=== PATIENT | male | born 2000 ===

== ENCOUNTER 2022-01-16 19:11 | Emergency (ER) | payer OTHER, SELFPAY ==
[2022-01-16 19:18] VITALS: BP 142/82; PULSE 87; RESP 16; TEMP 36.8; O2SAT 99; BMI 23.9
--- NOTE | 2022-01-16 19:21 | DI.RAD.S_ITS ---
PROCEDURE: XR HAND RT MIN 3V INDICATIONS: palm pain after jumping off bridge TECHNIQUE: 3 views of the hand(s) acquired. COMPARISON: None. FINDINGS: Bones: No fractures or dislocations. Carpal bones are normally aligned. No suspicious bony lesions. Benign-appearing sclerosis involving 5th proximal phalangeal shaft . Soft tissues: No suspicious soft tissue calcifications. IMPRESSION: No acute right hand fracture or dislocation. Benign-appearing sclerotic area involving 5th proximal phalangeal shaft which may represent benign process such as melorheostosis. Clinical correlation and radiographic follow-up is recommended. Dictated by: Eugene Fernádnez M.D. on 01/16/2022 at 19:56 Approved by: Eugene Fernández M.D. on 01/16/2022 at 19:57
--- NOTE | 2022-01-16 19:21 | DI.CT.S_ITS ---
PROCEDURE: CT HEAD/BRAIN WO CON INDICATIONS: jumped off bridge with right eye contusion TECHNIQUE: Noncontrast 4.5 mm thick angled axial sections acquired from the foramen magnum to the vertex, with coronal and sagittal reformats. For radiation dose reduction, the following was used: automated exposure control, adjustment of mA and/or kV according to patient size. COMPARISON: None. FINDINGS: Image quality: Excellent. CSF spaces: Basal cisterns are patent. No extra-axial fluid collections. Ventricles are normal in size and shape. Brain: No midline shift. No intracranial masses or hemorrhage. Dougherty-white matter interface is normal. Skull and face: There is very mild right frontal soft tissue swelling. Calvarium and visualized facial bones are intact, without suspicious lesions. Sinuses: Visualized sinuses and mastoids are clear. IMPRESSION: 1. No CT evidence of acute intracranial abnormalities. 2. Mild right frontal scalp soft tissue swelling. No acute skull fracture. Orbital gao are intact. Dictated by: Eugene Fernández M.D. on 01/16/2022 at 19:54 Approved by: Eugene Fernández M.D. on 01/16/2022 at 19:55
--- NOTE | 2022-01-16 19:21 | ED.GENADULT ---
HPI - General Adult General Chief complaint: Psychiatric Symptoms Stated complaint: SI, [place] Time Seen by Provider: 01/16/22 19:12 Source: patient and EMS Mode of arrival: EMS Limitations: no limitations History of Present Illness HPI narrative: Patient is a 21-year-old male who arrived in a cervical collar by BLS for evaluation injuries that he sustained from jumping off of a bridge. EMS reports that they were called because the patient had jumped off the bridge. Patient reports that he is injuries to his right hand otherwise no other injuries. He did swim to sure. His initial report that the bridge height was 200 ft however further evaluation this shows that it was more like 75 ft. There was no loss of consciousness. Patient states that he did this because he was trying to get attention from a girl. He states that he was not trying to kill himself. He admits that this was not the right actions in order to get the girl to notice him. He stated that he was not currently suicidal. Not homicidal. After further discussions with the patient by nursing staff it appears that he recently was admitted to [facility] for psychotic symptoms with SI. He mentioned to the nurse that he is not taking any of the medications that he was prescribed because he states that he feels like he does not need any of the medications. His story does change based on who is asking him questions. Related Data Allergies Allergy/AdvReac Type Severity Reaction Status Date / Time NSAIDS (Non-Steroidal Allergy Hives Verified 01/17/22 01:03 Anti-Inflamma Review of Systems Constitutional Constitutional: Reports system reviewed and no additional complaints, except as documented and Denies headache(s) Eyes Comments: No vision changes ENT Ears, Nose, Mouth, and Throat: Denies headache(s) Comments: No sore throat Cardiovascular Comments: Denies chest pain Respiratory Comments: Denies shortness of breath Gastrointestinal Comments: Denies abdominal pain or nausea vomiting Musculoskeletal Comments: Does endorse right hand pain Integumentary/Breasts Comments: No skin rashes Neurologic Neurologic: Denies headache(s) Psychiatric Comments: Denies suicidal or homicidal ideation Hematologic/Lymphatic Comments: Not on anticoagulation Allergic/Immunologic Allergic/Immunologic: Reports system reviewed and no additional complaints, except as documented Patient History Medical History Patient denies medical problems Social History Smoking Status: Current some day smoker Exam Initial Vital Signs Initial Vital Signs: Vital Signs Temperature 98.3 F 01/16/22 19:18 Pulse Rate 87 01/16/22 19:18 Respiratory Rate 16 01/16/22 19:18 Blood Pressure 142/82 H 01/16/22 19:18 Pulse Oximetry 99 01/16/22 19:18 Oxygen Delivery Method 01/16/22 19:18 Const General: cooperative, comfortable and No ill appearing HENMT Head: normal to inspection and normocephalic Eyes Pupils: PERRL Other: Contusion above right eye, bruising above the right eye Chest Chest: No crepitus and No tenderness Resp Effort & Inspection: normal respiratory effort Auscultation: clear to auscultation bilaterally Cardio Rate: regular rate Rhythm: regular rhythm GI Inspection: normal to inspection Palpation: soft and No tender Back/Spine/Pelvis Cervical Spine: No cervical spasm Thoracic/Lumbar Spine: No paraspinal tenderness, No thoracic spinal tenderness and No lumbar spinal tenderness Skin Other: Contusion and bruising above her right eye Neuro General: patient alert, patient awake, patient oriented x3 and moves all extremities Speech: speech normal Motor: muscle tone normal throughout Extrem Other: Pelvis is stable, bilateral lower extremities unremarkable. Left upper extremity unremarkable. Right shoulder right elbow unremarkable. Some tenderness to the right hand but otherwise right hand is unremarkable. Psych Other: Patient is cooperative, calm, not anxious, denies suicidal or homicidal ideation Scores GCS Fidencio coma scale eye opening: Spontaneous [place] coma scale verbal response: Orientated Fidencio coma scale motor response: Obey commands [place] coma scale total score: 15 Nexus Score for C-Spine Focal Neurologic deficit present: No Midline spinal tenderness present: No Altered level of conciousness present: No Intoxication present: No Distracting Injury Present: No Nexus Criteria for C-spine: 0 Course Orders Ordered: ED Orders 01/16/22 19:13 Consult to [facility] [place] - Information Clerk Stat 01/16/22 19:21 CT head/brain wo con Stat XR hand RT min 3V Stat 01/16/22 19:24 Urinalysis and Microscopic Stat Urine Drug Screen, Rapid Stat 01/16/22 19:35 Consult to [facility] [place] - Information Clerk Stat 01/16/22 19:55 Acetaminophen Stat Complete Blood Count AUTO DIFF Stat Comprehensive Metabolic Panel Stat Ethanol (ETOH) Stat Salicylate Stat Thyroid Stimulating Hormone Stat 01/16/22 20:04 COVID19 -Nasal RAPID/Pre-Proc Stat Discontinued Medications Lorazepam (Lorazepam 0.5 Mg Tablet) 1 mg PO NOW ONE Stop: 01/17/22 01:00 Last Admin: 01/17/22 01:06 Dose: 1 mg Documented By: [facility] Vital Signs Vital signs: Vital Signs - 8 hr 01/16/22 19:18 Temperature 98.3 F Pulse Rate 87 Respiratory Rate 16 Blood Pressure 142/82 H Pulse Oximetry 99 Oxygen Delivery Method Room Air Medical Decision Making Lab Data Lab results reviewed: Yes I reviewed the patient's lab results. Result diagrams: 01/16/22 19:55 01/16/22 19:55 Labs: Lab Results 01/16/22 01/16/22 01/16/22 Range/Units 19:24 19:24 19:55 WBC 11.8 H (4.5-11.0) X10^3/uL RBC 5.57 (4.5-5.9) X10^6/uL Hgb 16.6 (13.5-17.5) g/dL Hct 47.7 (41-53) % MCV 85.8 (80-100) fL MCH 29.8 (26-34) PG MCHC 34.8 (30-36) % RDW 12.9 (11.6-14.8) % Plt Count 155 (150-400) X10^3/uL Neut % (Auto) 78.4 H (50-75) % Lymph % (Auto) 10.8 L (25-40) % Avery % (Auto) 10.0 (3-14) % Eos % (Auto) 0.3 L (2-4) % Baso % (Auto) 0.5 (0-2) % Neut # (Auto) 9300 H (4987-7062) /uL Lymph # (Auto) 1300 (4356-3400) /uL Avery # (Auto) 1200 H (0-900) /uL Eos # (Auto) 0 (0-450) /uL Baso # (Auto) 100 (0-100) /uL Sodium (137-145) mmol/L Potassium (3.4-5.1) mmol/L Chloride (98-107) mmol/L Carbon Dioxide (22-32) mmol/L BUN (9-20) mg/dL Creatinine (0.66-1.25) mg/dL Estimated GFR (>60) mL/min BUN/Creatinine Ratio (6-22) Glucose (70-100) mg/dL Calcium (8.4-10.2) mg/dL Total Bilirubin (0.2-1.3) mg/dL AST (17-59) IU/L ALT (<50) IU/L Alkaline Phosphatase (38-126) U/L Total Protein (6.3-8.2) g/dL Albumin (3.5-5.0) g/dL Globulin (1.7-4.1) g/dL Albumin/Globulin Ratio (1.0-2.8) TSH (0.47-4.68) uIU/mL Urine Color Yellow Urine Appearance Clear Urine pH 7.5 (4.5-8.0) Ur Specific [place] 1.010 (1.000-1.035) Urine Protein Trace H (Negative) Urine Glucose (UA) Negative (Negative) g/dL Urine Ketones Trace H (NEGATIVE) Urine Occult Blood Negative (Negative) Urine Nitrate Negative (Negative) Urine Bilirubin Negative (NEGATIVE) Urine Urobilinogen 0.2 (0.2) E.U./dL Ur Leukocyte Esterase Negative (NEGATIVE) Urine RBC 0-1/hpf (0-5/HPF) Urine WBC 0-1/hpf (0-5/HPF) Ur Squamous Epith Cells 0-1 /hpf (0-5/HPF) Amorphous Sediment 1+ Urine Bacteria None seen (None) Ur Culture Indicated? Cult not indicated Salicylates (<20) mg/dL U Opiates 300ng/mL cut Negative (Negative) Ur Oxycodone Screen Negative (Negative) Urine Methadone Screen Negative (Negative) Acetaminophen (10-30) ug/mL Ur Barbiturates Screen Negative (Negative) U Tricyclic Antidepress Negative (Negative) Ur Phencyclidine Scrn Negative (Negative) Ur Amphetamines Screen Negative (Negative) U Methamphetamines Scrn Negative (Negative) Ur MDMA Scrn (Ecstasy) Negative (Negative) U Benzodiazepines Scrn Negative (Negative) Urine Cocaine Screen Negative (Negative) U Marijuana (THC) Screen Negative (Negative) Ethyl Alcohol ( - 10) mg/dL SARS-CoV-2 (PCR) (Negative) 01/16/22 01/16/22 01/16/22 Range/Units 19:55 19:55 19:55 WBC (4.5-11.0) X10^3/uL RBC (4.5-5.9) X10^6/uL Hgb (13.5-17.5) g/dL Hct (41-53) % MCV (80-100) fL MCH (26-34) PG MCHC (30-36) % RDW (11.6-14.8) % Plt Count (150-400) X10^3/uL Neut % (Auto) (50-75) % Lymph % (Auto) (25-40) % Avery % (Auto) (3-14) % Eos % (Auto) (2-4) % Baso % (Auto) (0-2) % Neut # (Auto) (6414-9981) /uL Lymph # (Auto) (1401-5439) /uL Avery # (Auto) (0-900) /uL Eos # (Auto) (0-450) /uL Baso # (Auto) (0-100) /uL Sodium 140 (137-145) mmol/L Potassium 3.9 (3.4-5.1) mmol/L Chloride 101 (98-107) mmol/L Carbon Dioxide 28 (22-32) mmol/L BUN 17 (9-20) mg/dL Creatinine 0.83 (0.66-1.25) mg/dL Estimated GFR > 60 (>60) mL/min BUN/Creatinine Ratio 20.5 (6-22) Glucose 90 (70-100) mg/dL Calcium 9.2 (8.4-10.2) mg/dL Total Bilirubin 0.7 (0.2-1.3) mg/dL AST 34 (17-59) IU/L ALT 27 (<50) IU/L Alkaline Phosphatase 57 (38-126) U/L Total Protein 7.8 (6.3-8.2) g/dL Albumin 4.5 (3.5-5.0) g/dL Globulin 3.3 (1.7-4.1) g/dL Albumin/Globulin Ratio 1.4 (1.0-2.8) TSH 1.17 (0.47-4.68) uIU/mL Urine Color Urine Appearance Urine pH (4.5-8.0) Ur Specific [place] (1.000-1.035) Urine Protein (Negative) Urine Glucose (UA) (Negative) g/dL Urine Ketones (NEGATIVE) Urine Occult Blood (Negative) Urine Nitrate (Negative) Urine Bilirubin (NEGATIVE) Urine Urobilinogen (0.2) E.U./dL Ur Leukocyte Esterase (NEGATIVE) Urine RBC (0-5/HPF) Urine WBC (0-5/HPF) Ur Squamous Epith Cells (0-5/HPF) Amorphous Sediment Urine Bacteria (None) Ur Culture Indicated? Salicylates < 1.0 (<20) mg/dL U Opiates 300ng/mL cut (Negative) Ur Oxycodone Screen (Negative) Urine Methadone Screen (Negative) Acetaminophen < 10 (10-30) ug/mL Ur Barbiturates Screen (Negative) U Tricyclic Antidepress (Negative) Ur Phencyclidine Scrn (Negative) Ur Amphetamines Screen (Negative) U Methamphetamines Scrn (Negative) Ur MDMA Scrn (Ecstasy) (Negative) U Benzodiazepines Scrn (Negative) Urine Cocaine Screen (Negative) U Marijuana (THC) Screen (Negative) Ethyl Alcohol < 10 ( - 10) mg/dL SARS-CoV-2 (PCR) (Negative) 01/16/22 Range/Units 20:04 WBC (4.5-11.0) X10^3/uL RBC (4.5-5.9) X10^6/uL Hgb (13.5-17.5) g/dL Hct (41-53) % MCV (80-100) fL MCH (26-34) PG MCHC (30-36) % RDW (11.6-14.8) % Plt Count (150-400) X10^3/uL Neut % (Auto) (50-75) % Lymph % (Auto) (25-40) % Avery % (Auto) (3-14) % Eos % (Auto) (2-4) % Baso % (Auto) (0-2) % Neut # (Auto) (7601-8955) /uL Lymph # (Auto) (1225-5648) /uL Avery # (Auto) (0-900) /uL Eos # (Auto) (0-450) /uL Baso # (Auto) (0-100) /uL Sodium (137-145) mmol/L Potassium (3.4-5.1) mmol/L Chloride (98-107) mmol/L Carbon Dioxide (22-32) mmol/L BUN (9-20) mg/dL Creatinine (0.66-1.25) mg/dL Estimated GFR (>60) mL/min BUN/Creatinine Ratio (6-22) Glucose (70-100) mg/dL Calcium (8.4-10.2) mg/dL Total Bilirubin (0.2-1.3) mg/dL AST (17-59) IU/L ALT (<50) IU/L Alkaline Phosphatase (38-126) U/L Total Protein (6.3-8.2) g/dL Albumin (3.5-5.0) g/dL Globulin (1.7-4.1) g/dL Albumin/Globulin Ratio (1.0-2.8) TSH (0.47-4.68) uIU/mL Urine Color Urine Appearance Urine pH (4.5-8.0) Ur Specific [place] (1.000-1.035) Urine Protein (Negative) Urine Glucose (UA) (Negative) g/dL Urine Ketones (NEGATIVE) Urine Occult Blood (Negative) Urine Nitrate (Negative) Urine Bilirubin (NEGATIVE) Urine Urobilinogen (0.2) E.U./dL Ur Leukocyte Esterase (NEGATIVE) Urine RBC (0-5/HPF) Urine WBC (0-5/HPF) Ur Squamous Epith Cells (0-5/HPF) Amorphous Sediment Urine Bacteria (None) Ur Culture Indicated? Salicylates (<20) mg/dL U Opiates 300ng/mL cut (Negative) Ur Oxycodone Screen (Negative) Urine Methadone Screen (Negative) Acetaminophen (10-30) ug/mL Ur Barbiturates Screen (Negative) U Tricyclic Antidepress (Negative) Ur Phencyclidine Scrn (Negative) Ur Amphetamines Screen (Negative) U Methamphetamines Scrn (Negative) Ur MDMA Scrn (Ecstasy) (Negative) U Benzodiazepines Scrn (Negative) Urine Cocaine Screen (Negative) U Marijuana (THC) Screen (Negative) Ethyl Alcohol ( - 10) mg/dL SARS-CoV-2 (PCR) Negative (Negative) Imaging Data Extremity x-ray #1: Radiologist's Impression: [facility] [address] [place] [id number] XRay Report Signed Patient: Ji Clay MR#: [id number] : 2000 Acct:[id number] Age/Sex: 21 / M Date of Service: 01/16/22 Loc: ED Accession Number: [id number] ?? Procedure: XR hand RT min 3V Ordering Provider: Fortino Joe D.O. PROCEDURE:? XR HAND RT MIN 3V ? INDICATIONS:? palm pain after jumping off bridge ? TECHNIQUE:? 3 views of the hand(s) acquired.? ? COMPARISON:? None. ? FINDINGS:? ? Bones:? No fractures or dislocations.? Carpal bones are normally aligned.? No suspicious bony lesions.? Benign-appearing sclerosis involving 5th proximal phalangeal shaft . ? Soft tissues:? No suspicious soft tissue calcifications.? ? ? IMPRESSION:? No acute right hand fracture or dislocation.? Benign-appearing sclerotic area involving 5th proximal phalangeal shaft which may represent benign process such as melorheostosis.? Clinical correlation and radiographic follow-up is recommended. ? ? Dictated by: Eugene Fernández M.D. on 01/16/2022 at 19:56 ? ? Approved by: Eugene Fernández M.D. on 01/16/2022 at 19:57?? CT scan - head: Radiologist's Impression: [address] [address] [address] Scan Report Signed Patient: Ji Clay MR#: [id number] : 2000 Acct:[id number] Age/Sex: 21 / M Date of Service: 01/16/22 Loc: ED Accession Number: [id number] ?? Procedure: CT head/brain wo con Ordering Provider: Fortino Joe D.O. PROCEDURE:? CT HEAD/BRAIN WO CON ? INDICATIONS:? jumped off bridge with right eye contusion ? TECHNIQUE:? Noncontrast 4.5 mm thick angled axial sections acquired from the foramen magnum to the vertex, with coronal and sagittal reformats.? For radiation dose reduction, the following was used:? automated exposure control, adjustment of mA and/or kV according to patient size.? ? COMPARISON:? None. ? FINDINGS:? Image quality:? Excellent.? ? CSF spaces:? Basal cisterns are patent.? No extra-axial fluid collections.? Ventricles are normal in size and shape.? ? Brain:? No midline shift.? No intracranial masses or hemorrhage.? Dougherty-white matter interface is normal.? ? Skull and face:? There is very mild right frontal soft tissue swelling.? Calvarium and visualized facial bones are intact, without suspicious lesions.? ? Sinuses:? Visualized sinuses and mastoids are clear.? ? IMPRESSION:? 1. No CT evidence of acute intracranial abnormalities. 2. Mild right frontal scalp soft tissue swelling.? No acute skull fracture.? Orbital gao are intact.? ? ? Dictated by: Eugene Fernández M.D. on 01/16/2022 at 19:54 ? ? Approved by: Eugene Fernández M.D. on 01/16/2022 at 19:55? MDM Narrative Medical decision making narrative: Patient is medically cleared. Was seen by DCR, and was detained. Placement found at [facility] where he actually was admitted and discharged approximately 1 week ago. Patient has been calm but is anxious. Was given Ativan. Patient is stable for transfer. Discharge Plan Departure Patient Disposition: Xfer [facility] Clinical Impression: Suicide attempt, Contusion of eye, right
--- NOTE | 2022-01-16 19:38 | PC.NURSE ---
Upon arrival to ER patient reports this was not an SI attempt. When screening patient he inconsistently answered questions. First reported no previous SI attempts followed by [facility]. It was a mis understanding with my parents because I was banging my head on the wall Patient at one point stated he was inappropriately placed on antipsychotic meds so he wasn't taking them, later changed his story stating I have been taking the meds consistently and I think that is why this event happen tonight I was just trying to get the girl, it was stupid and made no sense Patient contracts for safety and states I want to keep on living
[2022-01-16 20:11] LABS: Add Manual Diff / Slide Review NO; Basophils Absolute Auto 100 /uL (0-100); Basophils Percent Auto 0.5 % (0-2); Eosinophils Absolute Auto 0 /uL (0-450); Eosinophils Percent Auto 0.3 % (2-4); Hematocrit 47.7 % (41-53); Hemoglobin 16.6 g/dL (13.5-17.5); Lymphocytes Absolute Auto 1300 /uL (1100-4500); Lymphocytes Percent Auto 10.8 % (25-40); Mean Corpuscular HGB Conc 34.8 % (30-36); Mean Corpuscular Hemoglobin 29.8 PG (26-34); Mean Corpuscular Volume 85.8 fL (80-100); Monocytes Absolute Auto 1200 /uL (0-900); Neutrophils Absolute Auto 9300 /uL (1500-7000); Neutrophils Percent Auto 78.4 % (50-75); Platelet Count 155 X10^3/uL (150-400); Red Blood Cell Count 5.57 X10^6/uL (4.5-5.9); Red Cell Distribution Width 12.9 % (11.6-14.8); White Blood Cell Count 11.8 X10^3/uL (4.5-11.0)
[2022-01-16 20:27] LABS: Acetaminophen < 10 ug/mL (10-30); Alanine Aminotransferase 27 IU/L (<50); Albumin 4.5 g/dL (3.5-5.0); Albumin Globulin Ratio 1.4 (1.0-2.8); Alkaline Phosphatase 57 U/L (38-126); Aspartate Aminotransferase 34 IU/L (17-59); BUN Creatinine Ratio 20.5 (6-22); Bilirubin Total 0.7 mg/dL (0.2-1.3); Blood Urea Nitrogen 17 mg/dL (9-20); Calcium 9.2 mg/dL (8.4-10.2); Carbon Dioxide 28 mmol/L (22-32); Chloride 101 mmol/L (98-107); Estimated Glomerular Filt Rate > 60 mL/min (>60); Globulin 3.3 g/dL (1.7-4.1); Glucose 90 mg/dL (70-100); HEMOLYSIS 21 (0-50); Potassium 3.9 mmol/L (3.4-5.1); Sodium 140 mmol/L (137-145); Total Protein 7.8 g/dL (6.3-8.2)
[2022-01-16 20:27] LABS: COVID19 -Nasal RAPID Negative (Negative)
[2022-01-16 20:28] LABS: Ethanol (ETOH) < 10 mg/dL; Salicylate < 1.0 mg/dL (<20)
--- NOTE | 2022-01-16 20:34 | PC.NURSE ---
Discussed plan and expectation of ER visit. Patient contracts for safety. Requesting something for sleep. Patient states he wants off depakote and would rather be on antidepressants like zoloft. States that has worked for him in the past. Patient requests his grandmother Jennifer Onofre to be notified of him being in the ER.
[2022-01-16 20:47] LABS: UR Morphine/Opiate cutoff 300 Negative (Negative); Ur Creatinine Normal (Normal); Ur Specific Gravity Normal (Normal); Urine Amphetamines Negative (Negative); Urine Barbiturates Negative (Negative); Urine Benzodiazepines Negative (Negative); Urine Cocaine Negative (Negative); Urine MDMA Negative (Negative); Urine Methadone Negative (Negative); Urine Methamphetamines Negative (Negative); Urine Oxycodone Negative (Negative); Urine Phencyclidine Negative (Negative); Urine Tetrahydrocannabinol Negative (Negative); Urine Tricyclic Antidepressant Negative (Negative); Urine pH Normal (Normal)
[2022-01-16 20:56] LABS: Thyroid Stimulating Hormone 1.17 uIU/mL (0.47-4.68)
[2022-01-16 21:34] LABS: Appearance Urine UA CLEAR; Bilirubin Urine UA NEGATIVE (NEGATIVE); Color Urine UA YELLOW; Glucose Urine UA NEGATIVE (Negative); Ketones Urine UA TRACE (NEGATIVE); Leukocyte Esterase Urine UA NEGATIVE (NEGATIVE); Nitrite Urine UA NEGATIVE (Negative); Occult Blood Urine UA NEGATIVE (Negative); Protein Urine UA TRACE (Negative); Urobilinogen Urine UA 0.2 E.U./dL (0.2); pH Urine UA 7.5 (4.5-8.0)
[2022-01-16 21:36] LABS: Amorphous Sediment Urine 1+; Bacteria Urine None Seen; Culture Indicated Urine Cult Not Indicated; RBC Urine 0-1/HPF (0-5/HPF); Squamous Epithelial Cell Urine 0-1 /HPF (0-5/HPF); WBC Urine 0-1/HPF (0-5/HPF)
--- NOTE | 2022-01-16 22:49 | PC.NURSE ---
At 19:50 this nurse went in to introduce herself as primary nurse and assess the pt. When asked what brought the pt into the emergency, pt stated I jumped off the bridge, not sure why. The medication they have me on , 'Depakote' is not good for me, it made me have these thoughts and I shouldn't be taking it. When asked about a girl he was trying to impress, per triage report, pt denied and states I don't know what you're talking about.
[2022-01-17] MEDS: LORazepam 0.5 MG TABLET 1 MG PO (01:06)
--- NOTE | 2022-01-17 01:30 | PC.NURSE ---
First pt encounter - DCR at bedside - pt to be transferred to [facility] - calm and cooperative - sitter present
--- NOTE | 2022-01-17 02:00 | PC.NURSE ---
Resting quietly in NAD - lying on the stretcher - no needs voiced - awaiting transfer - calm and cooperative
--- NOTE | 2022-01-17 02:30 | PC.NURSE ---
No changes in pt status - sitter remains at bedside - pt calm and cooperative
--- NOTE | 2022-01-17 02:48 | DI.RAD.S_ITS ---
PROCEDURE: XR FOOT RT MIN 3V INDICATIONS: Generalized foot pain after jumping off bridge TECHNIQUE: 3 views of the foot were acquired. COMPARISON: None. FINDINGS: Bones: Small ossification is seen at the anterolateral aspect of the calcaneus, likely adjacent to the anterior process, which is likely the sequela of prior trauma of uncertain chronicity. No definite adjacent soft tissue edema is seen. Osseous structures are otherwise intact. Mild degenerative changes of the 1st metatarsophalangeal joint. Soft tissues: No significant soft tissue calcification. IMPRESSION: Small ossification at the lateral aspect of the anterior process of the calcaneus may represent an accessory ossification or the sequela of recent or remote prior trauma. Recommend correlation for point tenderness. Osseous structures are otherwise intact. Minor discrepancy with the overnight preliminary report of uncertain clinical significance. Dictated by: Dexter Solomon M.D. on 01/17/2022 at 7:53 Approved by: Dexter Solomon M.D. on 01/17/2022 at 7:58
--- NOTE | 2022-01-17 03:00 | PC.NURSE ---
Pt c/o foot pain - MD to bedside and XR ordered
--- NOTE | 2022-01-17 03:10 | PC.NURSE ---
Report given to Ambulance for transport of pt to [facility]
--- NOTE | 2022-01-17 03:15 | PC.NURSE ---
Report called to Jeremy Saldaña
--- NOTE | 2022-01-17 03:24 | PC.NURSE ---
Transferred to [facility] via [facility] - pt calm and cooperative
[2022-01-17 03:30] VITALS: BP 132/80; PULSE 86; RESP 16; O2SAT 98
== END 2022-01-17 03:30 ==
PROVIDERS: Emergency Provider Emergency Medicine
DX: T14.91XA Suicide attempt, initial encounter (principal); M79.641 Pain in right hand; S00.11XA Contusion of right eyelid and periocular area, initial encounter; Z20.822 Contact with and (suspected) exposure to COVID-19
CPT/HCPCS: 70450; 73130; 73630; 80053; 80305; 80320; 80329; 81001; 84443; 85025; 87635; 99285; C9803; G0480